=== PATIENT | male | born 1990 | race Caucasian/White ===

== ENCOUNTER 2021-10-13 04:30 | Day surgery (SDC) | payer OTHER ==
[2021-10-11 11:27] VITALS: BMI 25.7
[2021-10-13] MEDS ORDERED: DEXAMETHASONE SOD PHOSPHATE 10 MG/1 ML VIAL ONE (09:32)
[2021-10-13] MEDS ORDERED: ROPIVACAINE HCL 0.5% 30ML VIAL ONE (09:32)
[2021-10-13] MEDS ORDERED: MIDAZOLAM HCL 2 MG/2 ML SINGLE DOSE VIAL ONE ×2 (09:34)
[2021-10-13] MEDS ORDERED: oxyCODONE HCL 5 MG TABLET PO PRN (10:07)
[2021-10-13] MEDS ORDERED: ONDANSETRON 4 MG/2 ML VIAL IVPUSH PRN (10:07)
[2021-10-13] MEDS ORDERED: LACTATED RINGERS SOLUTION 1,000 ML IV SCH (10:15)
[2021-10-13] MEDS ORDERED: PROPOFOL 20 ML ONE ×3 (11:09→11:40)
[2021-10-13] MEDS ORDERED: LIDOCAINE HCL/PF 2% SDV 5ML VIAL ONE (11:18)
[2021-10-13] MEDS ORDERED: DEXAMETHASONE SOD PHOSPHATE 4 MG/1 ML VIAL ONE (11:25)
[2021-10-13] MEDS ORDERED: ceFAZolin SODIUM 1 GM VIAL ONE (11:29)
[2021-10-13] MEDS ORDERED: ceFAZolin SODIUM 1 GM VIAL IVPB ONE (11:30)
[2021-10-13 15:04] VITALS: BP 127/77; PULSE 68; TEMP 98
== END 2021-10-13 15:10 | disposition home or self-care (01) ==
LOC: JASU-SURG 04:30
PROVIDERS: ATTEND Orthopaedic Surgery
PROC: 0RQJ4ZZ Repair Right Shoulder Joint, Percutaneous Endoscopic Approach (ICD-10-PCS; principal; 2021-10-13 10:15)
DX: S43.431A Superior glenoid labrum lesion of right shoulder, initial encounter (principal); X58.XXXA Exposure to other specified factors, initial encounter; Y93.9 Activity, unspecified; Y92.9 Unspecified place or not applicable; Y99.9 Unspecified external cause status
CPT/HCPCS: 94760; J1100

== ENCOUNTER 2023-08-25 04:48 | Day surgery (SDC) | payer OTHER ==
[2023-08-23 12:53] VITALS: BMI 27.8
[2023-08-25 10:26] VITALS: TEMP 97.8
[2023-08-25 10:31] VITALS: BP 125/79; PULSE 65; RESP 15
== END 2023-08-25 10:31 | disposition home or self-care (01) ==
LOC: JASU-ENDO 04:48
PROVIDERS: ATTEND Student in an Organized Health Care Education/Training Program
PROC: 0DBB8ZX Excision of Ileum, Via Natural or Artificial Opening Endoscopic, Diagnostic (ICD-10-PCS; principal; 2023-08-25 09:00)
DX: K62.5 Hemorrhage of anus and rectum (principal); K64.8 Other hemorrhoids; K55.8 Other vascular disorders of intestine
CPT/HCPCS: 88305-TC